=== PATIENT | male | born 1995 | race Caucasian/White ===

== ENCOUNTER 2017-10-26 06:21 | Emergency (ER) | payer OTHER ==
[2017-10-26] MEDS ORDERED: NS 1,000 ML IV ONE ×2 (06:38→07:11)
[2017-10-26 06:43] LABS: % IMMATURE GRANULYOCYTES 0.3 % (0.0-1.1); ABSOLUTE IMMATURE GRANULOCYTES 0.02 10^3/uL (0.00-0.10); ADD DIFF? NO; ADD MORPH? NO; ADD SCAN? NO; ATYPICAL LYMPHOCYTE FLAG 0 (0-99); FRAGMENT RBC FLAG 0 (0-99); HEMOGLOBIN 16.3 g/dL (13.7-17.5); LEFT SHIFT FLG 0 (0-99); LIPEMIA HEMOLYSIS FLAG 90 (0-99); MEAN CELL HEMOGLOBIN 31.8 pg (27.9-34.1); MEAN CELL VOLUME 85.9 fL (81.5-99.8); MEAN PLATELET VOLUME 8.6 fL (8.7-11.7); PLATELET CLUMPS FLAG 0 (0-99); PLATELET COUNT 246 10^3/uL (150-400); RED BLOOD CELL COUNT 5.12 10^6/uL (4.40-6.38); RED CELL DISTRIBUTION WIDTH 13.7 % (11.5-15.2)
[2017-10-26 06:49] LABS: COLOR PALE YELLOW; LEUKOCYTE ESTERASE,URINE NEGATIVE (NEGATIVE); NITRITE,URINE NEGATIVE (NEGATIVE)
[2017-10-26 07:05] LABS: ALANINE AMINOTRANSFERASE 46 IU/L (21-72); ALBUMIN 4.4 g/dL (3.5-5.0); ALKALINE PHOSPHATASE 74 IU/L (38-126); ANION GAP 19 mEq/L (8-16); ASPARTATE AMINOTRANSFERASE 35 IU/L (17-59); BILIRUBIN,TOTAL 0.6 mg/dL (0.1-1.4); BILIRUBIN-CONJUGATED 0.3 mg/dL (0.0-0.5); BILIRUBIN-UNCONJUGATED 0.3 mg/dL (0.0-1.1); CALCIUM 9.8 mg/dL (8.5-10.4); CARBON DIOXIDE 23 mEq/l (22-31); CHLORIDE 104 mEq/L (97-110); CREATININE 1.1 mg/dL (0.7-1.3); GLOMERULAR FILTRATION RATE > 60; GLUCOSE 103 mg/dL (70-100); POTASSIUM 3.5 mEq/L (3.5-5.2); SODIUM 146 mEq/L (134-144); TOTAL PROTEIN 6.4 g/dL (6.3-8.2)
[2017-10-26] MEDS ORDERED: ONDANSETRON 4 MG/2 ML VIAL IVP ONE (07:11)
[2017-10-26] MEDS ORDERED: FAMOTIDINE 20 MG/NACL 50 ML IV ONE (07:11)
[2017-10-26] MEDS ORDERED: ONDANSETRON 4 MG/2 ML VIAL ONE (07:11)
[2017-10-26] MEDS ORDERED: FAMOTIDINE 20 MG/NACL/50 ML BAG IV ONE (07:11)
[2017-10-26] MEDS ORDERED: PANTOPRAZOLE SODIUM 40 MG VIAL IVP ONE (07:12)
--- NOTE | 2017-10-26 07:18 | EDPHY ---
H & P Time Seen by Provider: 10/26/17 06:55 HPI/ROS: HPI Abdominal pain. 22-year-old male by private vehicle. He reports that he woke up with epigastric and upper abdominal pain described as cramping aching and burning at 5:00 a.m.. He has had no nausea or or vomiting. Denies diarrhea. Last bowel movement was yesterday evening. He describes this is normal. No bloody or melenic stool. Last meal was 1:00 a.m.. He admits to drinking alcohol heavily last night. He states that he drinks alcohol heavily at least a couple of times a week. No prior abdominal surgical history. ROS: Constitutional: No fever, no chills. No weakness. Eyes: No discharge. No changes in vision. ENT: No sore throat. No nasal congestion or rhinorrhea. Respiratory: No cough. No shortness of breath. Cardiac: No chest pain, no palpitations. Gastrointestinal: As above, no vomiting, no diarrhea. Genitourinary: No hematuria. No dysuria or increased frequency with urination. Musculoskeletal: No back pain. No neck pain. No myalgias or arthralgias. Skin: No rashes. Neurological: No headache. No focal weakness or altered sensation. Past medical history: Asthma. Otherwise denies past medical history. Social history: Nonsmoker. As above. [employer]. Physical Exam: General Appearance: Alert, he appears uncomfortable. He has had 2 mg of IV morphine. This patient is responding to questions appropriately and in full sentences. This patient appears well-hydrated and well-nourished. Eyes: Pupils equal and round no pallor or injection. No lid edema, erythema or injection. Respiratory: There are no retractions, lungs are clear to auscultation with good air movement bilaterally. Cardiovascular: Regular rate and rhythm. No murmur. Gastrointestinal: Abdomen is soft with epigastric and vague left upper and right upper quadrant tenderness on palpation, no masses, bowel sounds normal. No focal tenderness at McBurney's point. No Wright sign. Testicular exam: No testicular lie. No high-riding testicle. No tenderness or masses on palpation of the testicles. No clinical evidence of torsion. Neurological: Motor sensory function is grossly intact. Cranial nerves are normal. Gait is normal. Skin: Warm and dry, no rashes. Musculoskeletal: Neck is supple and nontender. Extremities are symmetrical. All joints range without pain or impingement. Psychiatric: No agitation. No depression. Database: EKG: Imaging: Right upper quadrant ultrasound: normal study. Results were discussed with staff radiologist. Procedures: Emergency department course: IV was placed. He was placed on a monitor. Vital signs reviewed and are normal. He was started on IV normal saline with 1 L to be given over the next hour. Prior to my evaluation he was given 2 mg of IV morphine for pain by the nursing staff. After my evaluation he was given an additional 4 mg of IV morphine. He also has received 4 mg of IV morphine, 20 mg of IV Pepcid and 40 mg of IV Protonix. Right upper quadrant ultrasound will be obtained to evaluate his pancreas and gallbladder. 7:55 a.m., patient comfortable, feeling better. Results of ultrasound pending. Results of urinalysis and blood work discussed with him. 8:10 a.m., patient given a GI cocktail. Tolerated this without issue. Repeat abdominal exam is soft, nontender nondistended. His vital signs are normal. Results of his ultrasound discussed. He feels comfortable going home at this time. I feel he is safe for discharge. Follow-up and return to emergency department precautions reviewed with him. All of his questions were answered. I explained that he needed to cut back on his drinking. All of his questions were answered. He was discharged in good condition. Differential Diagnosis: The differential diagnosis on this patient includes but is not limited to alcohol induced gastritis, pancreatitis, biliary colic, cholecystitis. Appendicitis, testicular torsion This represents a partial list of diagnoses considered. These considerations are based on history, physical exam, past history, reassessment and diagnostic testing. Smoking Status: Current some day smoker Constitutional: Initial Vital Signs Temperature (C) 36.5 C 10/26/17 06:36 Heart Rate 58 L 10/26/17 06:36 Respiratory Rate 16 10/26/17 06:36 Blood Pressure 126/81 H 10/26/17 06:36 O2 Sat (%) 100 10/26/17 06:36 O2 Delivery Mode Room Air Allergies/Adverse Reactions: latex Allergy (Severe, Verified 10/26/17 06:34) sulfamethoxazole [From Bactrim] Allergy (Verified 10/26/17 06:35) trimethoprim [From Bactrim] Allergy (Verified 10/26/17 06:35) Home Medications: Medication Instructions Recorded ADVAIR HFA 230-21 MCG INHALER 10/26/17 Pantoprazole Sodium [Protonix] 40 mg PO DAILY #30 tablet. 10/26/17 Medical Decision Making - Data Points Laboratory Results: Laboratory Results 10/26/17 06:37 10/26/17 06:37 Medications Given: Discontinued Medications Al Hydroxide/Mg Hydroxide (Maalox Susp) 30 ml PO ONCE ONE Stop: 10/26/17 08:09 Last Admin: 10/26/17 08:20 Dose: 30 ml Sodium Chloride (Ns) 1,000 mls @ 0 mls/hr IV EDNOW ONE; Wide Open PRN Reason: Protocol Stop: 10/26/17 06:39 Last Admin: 10/26/17 06:43 Dose: 1,000 mls Sodium Chloride (Ns) 1,000 mls @ 0 mls/hr IV EDNOW ONE; Wide Open PRN Reason: Protocol Stop: 10/26/17 07:12 Last Admin: 10/26/17 07:22 Dose: 1,000 mls Famotidine/Sodium Chloride (Pepcid 20 Mg (Premix)) 50 mls @ 200 mls/hr IV EDNOW ONE Stop: 10/26/17 07:25 Last Admin: 10/26/17 07:18 Dose: 50 mls Lidocaine (Lidocaine 2% Viscous) 15 ml PO ONCE ONE Stop: 10/26/17 08:09 Last Admin: 10/26/17 08:20 Dose: 15 ml Morphine Sulfate (Morphine) 2 mg IVP EDNOW ONE Stop: 10/26/17 06:57 Last Admin: 10/26/17 06:58 Dose: 2 mg Morphine Sulfate (Morphine) 4 mg IVP EDNOW ONE Stop: 10/26/17 07:12 Last Admin: 10/26/17 07:19 Dose: 4 mg Ondansetron HCl (Zofran) 4 mg IVP EDNOW ONE Stop: 10/26/17 07:12 Last Admin: 10/26/17 07:18 Dose: 4 mg Pantoprazole Sodium (Protonix) 40 mg IVP EDNOW ONE Stop: 10/26/17 07:13 Last Admin: 10/26/17 07:18 Dose: 40 mg Departure - Departure Disposition: Home, Routine, Self-Care Clinical Impression: Upper abdominal pain, Gastritis Condition: Good Instructions: Gastritis (ED), Abdominal Pain (ED) Additional Instructions: Read and follow provided instructions. Do not drink alcohol. Avoid spicy and fatty foods. Follow-up with your primary care physician in 1-2 days for re-evaluation. Take medication as prescribed. Return to the emergency department for worsening abdominal pain, vomiting, blood in her stool, black stool or other serious concerns. Referrals: NONE *PRIMARY CARE P,. [Primary Care Provider] - As per Instructions Prescriptions: Pantoprazole Sodium [Protonix] 40 mg PO DAILY #30 tablet.
[2017-10-26] MEDS ORDERED: MAG HYDROX/AL HYDROX/SIMETH 30 ML UDCUP PO ONE (08:08)
[2017-10-26] MEDS ORDERED: LIDOCAINE 2% VISCOUS 15 ML UDCUP PO ONE (08:08)
[2017-10-26 08:31] VITALS: BP 119/63; PULSE 70; RESP 18; TEMP 98.6; O2SAT 97
== END 2017-10-26 08:30 | disposition home or self-care (01) ==
DX: K29.70 Gastritis, unspecified, without bleeding (principal); E86.9 Volume depletion, unspecified; J45.909 Unspecified asthma, uncomplicated; F17.200 Nicotine dependence, unspecified, uncomplicated; Z91.040 Latex allergy status
CPT/HCPCS: 96365; J2405